=== PATIENT | male | born 1955 | race Caucasian/White ===

== ENCOUNTER 2020-09-20 08:12 | Inpatient (IN) | payer BC, MEDICARE ==
[~2020-09-20] VITALS: Ht 190.5 cm; Wt 129.1 kg
[2020-09-20 08:38] LABS: BASOPHILS ABSOLUTE AUTO 0.04 K/mm3 (0.00-0.23); BASOPHILS PERCENT AUTO 0 % (0-2); EOSINOPHILS ABSOLUTE AUTO 0.25 K/mm3 (0.00-0.68); EOSINOPHILS PERCENT AUTO 3 % (0-6); Hematocrit 47.5 % (37.0-53.0); Hemoglobin 16.2 g/dL (13.5-17.5); IMMATURE GRAN ABSOLUTE AUTO 0.03 K/mm3 (0.00-0.10); IMMATURE GRAN PERCENT AUTO 0 % (0-1); LYMPHOCYTES ABSOLUTE AUTO 3.06 K/mm3 (0.84-5.20); LYMPHOCYTES PERCENT AUTO 31 % (21-46); MONOCYTES PERCENT AUTO 15 % (4-13); Mean Corpuscular HGB Conc 34.1 g/dL (31.5-36.5); Mean Corpuscular Volume 91 fL (80-100); Mean Platelet Volume 10.7 fL (9.1-12.4); NEUTROPHILS ABSOLUTE AUTO 4.87 K/mm3 (1.96-9.15); NEUTROPHILS PERCENT AUTO 50 % (41-73); Platelet Count 350 K/mm3 (150-400); RDW Coefficient Variation 14.2 % (11.7-14.2); RDW Standard Deviation 47.8 fL (35.1-46.3); Red Blood Cell Count 5.22 M/mm3 (4.30-5.90); White Blood Cell Count 9.75 K/mm3 (4.00-11.30)
[2020-09-20 08:51] LABS: International Normalized Ratio 1.04; Prothrombin Time Results 11.2 Sec (9.7-11.5)
[2020-09-20 08:59] LABS: Alanine Aminotransfer (ALT/SGP 32 U/L (12-78); Albumin, Blood 3.7 g/dL (3.4-5.0); Alk Phos 77 U/L (50-136); Anion Gap 7 mmol/L (6-16); Aspartate Aminotrans (AST/SGOT 21 U/L (12-37); Bilirubin, Total 0.7 mg/dL (0.1-1.0); Blood Urea Nitrogen 14 mg/dL (8-24); Bun/Creatinine Ratio 11.6 (12.0-20.0); CO2, Blood 26 mmol/L (21-32); Calcium, Blood 8.5 mg/dL (8.5-10.1); Chloride, Blood 104 mmol/L (98-108); Creatinine, Blood 1.21 mg/dL (0.60-1.20); Globulin, Blood 3.6 g/dL (2.2-4.0); Glomerular Filtration Rate >60 (60-); Glucose, Blood 142 mg/dL (70-99); Potassium, Blood 3.6 mmol/L (3.5-5.5); Sodium, Blood 137 mmol/L (136-145); Total Protein, Blood 7.3 g/dL (6.4-8.2); Troponin I 0.016 ng/mL (0.000-0.040)
[2020-09-20] MEDS ORDERED: Aspir 8181 MG PO (12:18)
[2020-09-20] MEDS ORDERED: LISI10 PO (12:18)
--- NOTE | 2020-09-20 12:30 | NUR ---
ARRIVAL TO ICU. PT ARRIVES FROM SENIOR QA ANALYST S/P STENT PLACEMENT X 3 AT 1210. PT A&OX 4. FOLLOWS DIRECTIONS. PT DENIES CHEST PAIN. NSR ON MONITOR. RATE 80'S. LUNGS CLEAR. ONLY C/O NEEDING TO URINATE. FEM STOP TO RIGHT GROIN. INFLATED TO 170 MMHG. NO ECCHYMOSIS, SWELLING NOTED. NON TENDER. INSTRUCTIONS PER DR OROPEZA FOR DEFLATION. RIGHT FOOT WARM. PULSES DOPPLERED. GOOD WAVEFORM. VSS. PIV SALINE LOCKED. WILL CONTINUE TO MONITOR.
[2020-09-20 13:49] LABS: Source, Urine Catheter
[2020-09-20 13:56] LABS: Appearance, Urine Clear (Clear); Bilirubin, Urine Neg (Neg); Blood, Urine 4+ (Neg); Color, Urine Yellow (P-Yellow); Glucose Qualitative, Urine Neg (Neg); Ketones, Urine Neg (Neg); Leukocyte Esterase, Urine Neg (Neg); Nitrite, Urine Neg (Neg); Protein, Urine 1+ (Neg); Urobilinogen, Urine NORM (Normal)
[2020-09-20 14:18] LABS: White Blood Cells, Urine 0-2 /hpf (0-5)
[2020-09-20 14:19] LABS: Bacteria Rare /hpf; Squamous Epithelial Cells Rare /hpf (Few)
--- NOTE | 2020-09-20 17:22 | NUR ---
SHIFT SUMMARY PT ASSESSMENT REMAINS UNCHANGED. PT HAD ONE EPISODE OF CHEST PAIN, 2/, RESOLVED c NITRO X 2 SL. FEM STOP REMOVED AT 1700. NO BLEEDING NOTED AT THIS TIME. PLAN FOR PT TO RETURN TO FORMULA TECHNICIAN AT 1000 TOMORROW. PT HAD ONE EPISODE OF VTACH. WILL CONTINUE TO MONITOR.
--- NOTE | 2020-09-20 19:40 | NUR ---
ASSUMPTION OF CARE PT RESTING IN BED, ALERT AND ORIENTED X4. NS INFUSING AT 100 ML/HR. NO BLEEDING NOTED FROM GROIN SITE. PT VOIDS USING URINAL AT BEDSIDE, CALL LIGHT WITHIN REACH AND USED APPROPRIATELY. PT COMPLAINING OF 2/10 CHEST PAIN, WILL CONTINUE TO MONITOR. ORDER TO START AGGRASTAT X5 HOURS. VSS, SBP 140-150'S, HR 80'S, SPO2 >90% ON RA.
--- NOTE | 2020-09-20 21:34 | NUR ---
UPDATE PHYSICIAN NOTIFIED REGARDING 21 BEAT RUN OF VTACH. PT DENIED PAIN T/O EPISODE, VSS. NEW ORDERS PLACED FOR STAT EKG, AMIODARONE AND MAGNESIUM. MD ALSO NOTIFIED REGARDING CRITICAL TROPONIN VALUE OF 34.6. WILL CONTINUE TO MONITOR.
--- NOTE | 2020-09-21 01:08 | NUR ---
UPDATE PER DR. OROPEZA, AGGRASTAT RESTARTED AND TO RUN FOR 7 HOURS. STOP TIME 09/21/20 @ 0800. WILL CONTINUE TO ASSESS GROIN SITE WHILE INFUSING.
[2020-09-21 04:57] LABS: Magnesium, Blood 2.6 mg/dL (1.6-2.4); Phosphorus, Blood 2.9 mg/dL (2.5-4.9)
--- NOTE | 2020-09-21 05:36 | NUR ---
UPDATE DR. OROPEZA NOTIFIED OF CRITICAL TROPONIN OF 47.8. EKG IMAGE SENT VIA TEXT PER MD REQUEST. NO NEW ORDERS AT THIS TIME.
--- NOTE | 2020-09-21 06:23 | NUR ---
SHIFT SUMMARY PT CALM AND COOPERATIVE T/O SHIFT, USES CALL LIGHT APPROPRIATELY. AGGRASTAT INFUSING AT 23.2 ML/HR UNTIL 0800. R GROIN SITE SOFT, NO BLEEDING NOTED. PT OCCASSIONALLY COMPLAINING OF 2 OUT OF 10 CHEST PAIN DURING THIS SHIFT. PULSES STRONG IN BLE. VSS, SPO2 >92% ON RA, HR 60-70'S, SBP 115-120'S. PT REMAINS ALERT AND ORIENTED X4, REPOSITIONS SELF IN BED, URINAL AT BEDSIDE.
[2020-09-21 07:48] LABS: BASOPHILS ABSOLUTE AUTO 0.03 K/mm3 (0.00-0.23); BASOPHILS PERCENT AUTO 0 % (0-2); EOSINOPHILS ABSOLUTE AUTO 0.06 K/mm3 (0.00-0.68); EOSINOPHILS PERCENT AUTO 0 % (0-6); Hematocrit 40.9 % (37.0-53.0); Hemoglobin 13.8 g/dL (13.5-17.5); IMMATURE GRAN ABSOLUTE AUTO 0.06 K/mm3 (0.00-0.10); IMMATURE GRAN PERCENT AUTO 0 % (0-1); LYMPHOCYTES ABSOLUTE AUTO 1.68 K/mm3 (0.84-5.20); LYMPHOCYTES PERCENT AUTO 12 % (21-46); MONOCYTES ABSOLUTE AUTO 2.33 K/mm3 (0.16-1.47); MONOCYTES PERCENT AUTO 16 % (4-13); Mean Corpuscular HGB 31.2 pg (26.0-34.0); Mean Corpuscular HGB Conc 33.7 g/dL (31.5-36.5); Mean Corpuscular Volume 93 fL (80-100); Mean Platelet Volume 11.2 fL (9.1-12.4); NEUTROPHILS PERCENT AUTO 71 % (41-73); Platelet Count 285 K/mm3 (150-400); RDW Coefficient Variation 14.6 % (11.7-14.2); RDW Standard Deviation 49.8 fL (35.1-46.3); Red Blood Cell Count 4.42 M/mm3 (4.30-5.90); White Blood Cell Count 14.26 K/mm3 (4.00-11.30)
[2020-09-21 08:04] LABS: Anion Gap 5 mmol/L (6-16); Blood Urea Nitrogen 11 mg/dL (8-24); Bun/Creatinine Ratio 9.3 (12.0-20.0); CO2, Blood 27 mmol/L (21-32); Calcium, Blood 8.3 mg/dL (8.5-10.1); Chloride, Blood 105 mmol/L (98-108); Creatinine, Blood 1.18 mg/dL (0.60-1.20); Glomerular Filtration Rate >60 (60-); Glucose, Blood 108 mg/dL (70-99); Potassium, Blood 4.1 mmol/L (3.5-5.5); Sodium, Blood 137 mmol/L (136-145)
--- NOTE | 2020-09-21 08:15 | NUR ---
AM NOTE ASSUMED CARE OF PT AT APPROX 0700. PT ALERT AND ORIENTED X 4. VSS. R GROIN SITE REMAINS STABLE; SLIGHT BRUISING NOTED. PT REPORTS 2/10 CHEST PAIN, WILL CONTINUE TO MONITOR. AGGRASTAT DISCONTINUED AT 0800. LUNG SOUNDS CLEAR THROUGHOUT, SPO2 GREATER THAN 90%. BOWEL TONES HYPERACTIVE, PT DENIED NAUSEA/VOMITING. PT NOW RESTING, CALL LIGHT IN REACH, BED IN LOW. WILL CONTINUE TO MONITOR.
--- NOTE | 2020-09-21 10:07 | NUR ---
THIS RN REVIEWED THE [facility] STUDENTS DOCUMENTATION AND IS IN AGREEMENT. REPORT GIVEN TO MEDICAL CLAIMS EXAMINER JAMES AT APPROX 0820 WHO ASSUMED CARE OF PATIENT.
--- NOTE | 2020-09-21 10:40 | NUR ---
ECHOCARDIOGRAM COMPLETED
--- NOTE | 2020-09-21 11:11 | NUR ---
ASSUMPTION OF CARE NOTE AT 1030 PT ALERT AND ORIENTED X4. HE IS PLEASANT AND COOPERATIVE. RIGHT TR BAND IN PLACE, DISTAL EXTREMETY PINK, WARM TO TOUCH. PT REPORTS SENSATION IN AFFECTED EXTREMITY. VSS. NO ACUTE CHANGES IN R GROIN SITE. NO OTHER ACUTE CHANGES NOTED. WILL CONTINUE TO MONITOR. CALL LIGHT IN REACH, BED IN LOW.
--- NOTE | 2020-09-21 16:15 | NUR ---
PT REPORTS 05/18 CHEST PAIN AND RIGHT GROIN TENDERNESS; NOTIFIED DR OROPEZA; NEW ORDERS ENTERED. WILL CONTINUE TO MONITOR.
--- NOTE | 2020-09-21 17:52 | NUR ---
SHIFT SUMMARY PT ALERT AND ORIENTED X4. THIS STUDENT ASSUMED CARE AT APPROX 1000. HE IS PLEASANT AND COOPERATIVE W/ CARE. VSS, SPO2 IN 90'S VIA ROOM AIR. PT REPORTED CHEST PAIN 2/10; TREATED PER EMAR. TR BAND ON RA RECOVERED PER ORDER; NO BLEEDING NOTED AT SITE. THERE IS SOME BRUISING NOTED PROXIMAL TO SITE. THIS STUDENT EDUCATED PT ON IMPORTANCE OF KEEPING AFFECTED ARM IMMOBILIZED. R GROIN SITE REMAINS SOFT, NO BLEEDING NOTED. PT IS ABLE TO REPOSITION/AMBULATE ON OWN. NO OTHER ACUTE CHANGES NOTED. WILL CONTINUE TO MONITOR THROUGHOUT SHIFT. PT NOW RESTING, CALL LIGHT IN REACH, BED IN LOW/LOCK.
--- NOTE | 2020-09-21 18:48 | NUR ---
THIS RN HAS REVIEWED THE TECHNICIAN SUBMAR[employer] DOCUEMENTATION AND IS IN AGREEMENT. THIS RN AND TECHNICIAN SUBMARINE CABLE EQUIPMENT ASSUMED CARE AT APPROX 1045, PT FROM PRINCIPAL CONSULTANT, BEDSIDE REPORT. VSS. NO OTHER ACUTE CHANGES NOTED DURING SHIFT. WILL CONTINUE TO MONITOR.
--- NOTE | 2020-09-22 04:31 | NUR ---
WIRE COATING MACHINE OPERATOR SUMMARY PT HAS DENIED ANY CP OR PRESSURE THIS SHIFT. TELE HAS SHOWN NSR IN 80-90'S. OPSITE ON RR IS C/D/I W NO S/S OF BLEEDING OR HEMATOMA. OPSITE ON R GROIN IS BRUISED BUT IS SOFT, TENDER AND SHOWS NO S/S OF ACTIVE BLEEDING. O2 SATS >92% ON RM AIR. THE PT HAS BEEN ANXIOUS AND ALMOST MANIC AT TIMES ONCE BEING FOUND W A PULLED IV TRYING TO REINSERT THE CANNULA BACK INTO HIS ARM. THE PT HAS ALSO REPEATEDLEY SAID THAT HE NEEDS TO LEAVE TO "FRESHEN UP" BEFORE HE TALKS TO THE DOCTOR THIS AM. THIS RN EXPLAINED THAT HE WOULD BE LEAVING AMA AND THAT THE PLAN IS FOR DC TODAY BUT THE PT SEEMS TO BE ANXIOUS ABOUT GETTING OUT OF THE HOSPITAL. PT HAS BEEN AWAKE MOST OF THE NIGHT. VSS, FERNANDA.
[2020-09-22 07:47] LABS: BASOPHILS ABSOLUTE AUTO 0.04 K/mm3 (0.00-0.23); BASOPHILS PERCENT AUTO 0 % (0-2); EOSINOPHILS ABSOLUTE AUTO 0.13 K/mm3 (0.00-0.68); EOSINOPHILS PERCENT AUTO 1 % (0-6); Hematocrit 42.8 % (37.0-53.0); Hemoglobin 14.3 g/dL (13.5-17.5); IMMATURE GRAN ABSOLUTE AUTO 0.07 K/mm3 (0.00-0.10); IMMATURE GRAN PERCENT AUTO 0 % (0-1); LYMPHOCYTES ABSOLUTE AUTO 1.71 K/mm3 (0.84-5.20); LYMPHOCYTES PERCENT AUTO 10 % (21-46); MONOCYTES ABSOLUTE AUTO 3.19 K/mm3 (0.16-1.47); MONOCYTES PERCENT AUTO 20 % (4-13); Mean Corpuscular HGB Conc 33.4 g/dL (31.5-36.5); Mean Corpuscular Volume 93 fL (80-100); Mean Platelet Volume 10.9 fL (9.1-12.4); NEUTROPHILS ABSOLUTE AUTO 11.26 K/mm3 (1.96-9.15); NEUTROPHILS PERCENT AUTO 69 % (41-73); Platelet Count 277 K/mm3 (150-400); RDW Coefficient Variation 14.5 % (11.7-14.2); RDW Standard Deviation 49.3 fL (35.1-46.3); Red Blood Cell Count 4.62 M/mm3 (4.30-5.90)
[2020-09-22 08:06] LABS: Anion Gap 3 mmol/L (6-16); Blood Urea Nitrogen 11 mg/dL (8-24); Bun/Creatinine Ratio 9.2 (12.0-20.0); CO2, Blood 30 mmol/L (21-32); Calcium, Blood 8.6 mg/dL (8.5-10.1); Chloride, Blood 101 mmol/L (98-108); Glomerular Filtration Rate >60 (60-); Glucose, Blood 108 mg/dL (70-99); Potassium, Blood 3.9 mmol/L (3.5-5.5); Sodium, Blood 134 mmol/L (136-145)
[2020-09-22] MEDS ORDERED: Amiodarone HCl200 MG PO (08:13)
[2020-09-22] MEDS ORDERED: ACET325 PO (08:13)
[2020-09-22] MEDS ORDERED: ASPI81CH PO (08:14)
[2020-09-22] MEDS ORDERED: Isosorbide Mono30 MG PO (08:15)
[2020-09-22] MEDS ORDERED: ATOR80 PO (08:15)
[2020-09-22] MEDS ORDERED: LISI5 PO (08:16)
[2020-09-22] MEDS ORDERED: MAGNESIUM OXID500 MG PO (08:17)
[2020-09-22] MEDS ORDERED: METO25ER PO (08:18)
[2020-09-22] MEDS ORDERED: NITR.4SL SL ×2 (08:19→08:21)
[2020-09-22] MEDS ORDERED: BRILINTA90 M1 PO (08:20)
--- NOTE | 2020-09-22 10:57 | NUR ---
DISCHARGE SUMMARY PT A&Ox4; ANXIOUS TO BE DISCHARGED, PACING IN ROOM. NEEDING MULTIPLE REMINDERS REGARDING USE OF RIGHT HAND. PT DENIES PAIN, CHEST PAIN, [place] SOB AND DIZZINESS. RIGHT RADIAL SITE BRUISED; NO BLEEDING OR HEMATOMA. RIGHT GROIN SITE BRUISED; NO BLEEDING OR HEMATOMA NOTED. VSS. PT AND SPOUSE EDUATED ON DISCHARGE INSTRUCTIONS, FOLLOW UP APPOINTMENTS AND MEDICATIONS. PT AND SPOUSE EDUCATED ON THE IMPORTANCE OF NEW MEDICATIONS, PRESCRIPTIONS CALLED INTO [facility] IN [place], PT AND SPOUSE PLAN TO CREDIT RISK ASSOCIATE BEFORE HEADING HOME TO [place]. PT AND SPOUSE EDCUATED ON ACTIVITY RESTICTIONS FOR RADIAL AND FEMOIRAL SITE. NO OTHER ACUTE CHANGES NOTED. PT LEFT ROOM VIA WHEEL CHAIR AT 0945.
== END 2020-09-22 09:42 | disposition home or self-care (01) | DRG 247 ==
LOC: ER 08:12 → ICUW 08:32 → ICUE 11:11 → PCU 09-21 10:49
PROVIDERS: Emergency Medicine; ADMIT Internal Medicine Cardiovascular Disease
PROC: 027036Z Dilation of Coronary Artery, One Artery with Three Drug-eluting Intraluminal Devices, Percutaneous Approach (ICD-10-PCS; principal; 2020-09-20)
PROC: 02C03ZZ Extirpation of Matter from Coronary Artery, One Artery, Percutaneous Approach (ICD-10-PCS; 2020-09-20)
PROC: B2111ZZ Fluoroscopy of Multiple Coronary Arteries using Low Osmolar Contrast (ICD-10-PCS; 2020-09-20)
PROC: 4A023N7 Measurement of Cardiac Sampling and Pressure, Left Heart, Percutaneous Approach (ICD-10-PCS; 2020-09-20)
PROC: B2151ZZ Fluoroscopy of Left Heart using Low Osmolar Contrast (ICD-10-PCS; 2020-09-20)
PROC: B2101ZZ Fluoroscopy of Single Coronary Artery using Low Osmolar Contrast (ICD-10-PCS; 2020-09-21)
PROC: 4A023N7 Measurement of Cardiac Sampling and Pressure, Left Heart, Percutaneous Approach (ICD-10-PCS; 2020-09-21)
DX: I21.09 ST elevation (STEMI) myocardial infarction involving other coronary artery of anterior wall (principal); I47.2 Ventricular tachycardia; I10 Essential (primary) hypertension; I25.5 Ischemic cardiomyopathy
CPT/HCPCS: 36415; 51702; 71045; 76937; 80048; 80053; 81001; 83735; 84100; 84484; 85025; 85347; 85610; 85730; 92973; 92977; 92978; 93005; 93010; 93454; 93458; 96365; 96375; 99152; 99153; 99285-25; A9270; C1725; C1753; C1757; C1760; C1769; C1874; C1887; C1894; C8929; C9600; C9606; J0282; J0461; J1644; J2250; J2370; J2405; J2720; J2997; J3010; J3246; J3475; J7030; J7040; J7050; Q9957; Q9967